=== PATIENT | female | born 1980 | race Caucasian/White ===

== ENCOUNTER 2016-11-02 02:25 | Inpatient (IN) | payer MEDICAID ==
[2016-11-02] MEDS ORDERED: ONDANSETRON 4 MG/2 ML VIAL IVP PRN ×2 (02:45→04:54)
[2016-11-02] MEDS ORDERED: SODIUM CHLORIDE FLUSH 0.9% 10 ML SYRINGE IVP ONE (02:57)
[2016-11-02] MEDS ORDERED: fentaNYL 100 MCG/2 ML VIAL IVP PRN (02:58)
[2016-11-02] MEDS ORDERED: fentaNYL 100 MCG/2 ML VIAL ONE (04:02)
[2016-11-02] MEDS ORDERED: SUFENTA/BUPIV 0.4 MCG/0.0625% 150 ML EP ONE (04:03)
[2016-11-02] MEDS ORDERED: ROPIVACAINE 0.2% PF 10 ML VIAL EPI ONE (04:15)
[2016-11-02] MEDS ORDERED: fentaNYL 100 MCG/2 ML VIAL IVP ONE (04:15)
[2016-11-02] MEDS: LACTATED RINGERS 1,000 ML IV SCH (04:49)
[2016-11-02] MEDS ORDERED: diphenhydrAMINE INJ 50 MG/ML VIAL IVP PRN (04:54)
[2016-11-02] MEDS ORDERED: SUFENTA/BUPIV 0.4 MCG/0.0625% EPIDURAL 150 ML EP PRN (04:54)
[2016-11-02] MEDS ORDERED: NALBUPHINE 20 MG/ML AMP IVP PRN (04:54)
[2016-11-02] MEDS ORDERED: LACTATED RINGERS 500 ML IV SCH (04:54)
[2016-11-02] MEDS ORDERED: ePHEDrine 50 MG/ML AMP IVP PRN (04:54)
[2016-11-02] MEDS ORDERED: METOCLOPRAMIDE 10 MG/2 ML VIAL IVP PRN (04:54)
[2016-11-02] MEDS ORDERED: NALOXONE 0.4 MG/ML VIAL IVP PRN (04:54)
[2016-11-02] MEDS ORDERED: OXYTOCIN/LACTATED RINGERS 250 ML IV ONE ×2 (07:15→09:07)
[2016-11-02] MEDS ORDERED: ONDANSETRON ODT 4 MG TABLET PO PRN (09:07)
[2016-11-02] MEDS ORDERED: diphenhydrAMINE 25 MG CAPSULE PO PRN (09:07)
[2016-11-02] MEDS ORDERED: HYDROCORTISONE/PRAMOXINE 10 GM PR PRN (09:07)
[2016-11-02] MEDS ORDERED: HYDROcod/ACETAM 5/325 MG TABLET PO PRN (09:07)
[2016-11-02] MEDS ORDERED: MAGNESIUM HYDROXIDE 2,400 MG/30 ML UDC PO PRN (09:07)
[2016-11-02] MEDS: IBUPROFEN 600 MG TABLET PO SCH ×3 (11:07→22:56)
[2016-11-02] MEDS: DOCUSATE SODIUM 100 MG CAPSULE PO SCH (22:56)
[2016-11-03] MEDS: IBUPROFEN 600 MG TABLET PO SCH ×4 (04:56→23:07)
[2016-11-03] MEDS: LACTATED RINGERS 1,000 ML IV SCH ×2 (07:25→11:25)
[2016-11-03] MEDS: DOCUSATE SODIUM 100 MG CAPSULE PO SCH ×2 (08:35→23:06)
[2016-11-03] MEDS: ACETAMINOPHEN 500 MG TABLET PO PRN ×2 (09:35→16:58)
[2016-11-04] MEDS: ACETAMINOPHEN 500 MG TABLET PO PRN ×2 (02:19→09:45)
[2016-11-04] MEDS: IBUPROFEN 600 MG TABLET PO SCH (09:46)
[2016-11-04] MEDS: DOCUSATE SODIUM 100 MG CAPSULE PO SCH (09:49)
== END 2016-11-04 11:00 | disposition home or self-care (01) | DRG 775 ==
PROC: 10E0XZZ Delivery of Products of Conception, External Approach (ICD-10-PCS; principal; 2016-11-02)
DX: O80 Encounter for full-term uncomplicated delivery (principal); Z3A.40 40 weeks gestation of pregnancy; Z37.0 Single live birth

== ENCOUNTER 2018-01-05 16:55 | Emergency (ER) | payer MEDICAID ==
--- NOTE | 2018-01-05 18:53 | ED Physician Documentation ---
PD HPI URI - Stated complaint Stated Complaint: SINUS PRESSURE - Chief complaint Chief Complaint: Heent - History obtained from History obtained from: Patient - History of Present Illness Timing - onset: How many days ago Timing duration: Days Timing details: Gradual onset, Still present (had had congestion and sore throat couple of weeks and now with few days of purulent, bad smelling drainage , purulent, with some fever and sinus pain.) Associated symptoms: Fever, Nasal congestion, Sinus pain, Sore throat, Dry cough. 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 HEENT: None Psych: None Musculoskeletal: None Derm: None - Past Surgical History Past Surgical History: No - Present Medications Home Medications: Ambulatory Orders Medication Instructions Recorded Confirmed Azithromycin [Zithromax] 250 mg PO DAILY #6 tablet 01/05/18 Benzonatate [Tessalon] 100 mg PO TID PRN #25 capsule 01/05/18 Dexamethasone [Decadron] 4 mg PO DAILY #5 tablet 01/05/18 guaiFENesin/CODEINE [Robitussin AC] 10 ml PO Q6H PRN #240 ml 01/05/18 - Allergies Allergies/Adverse Reactions: Allergies Allergy/AdvReac Type Severity Reaction Status Date / Time Sulfa (Sulfonamide Allergy Unknown Verified 01/05/18 17:10 Antibiotics) - Social History Does the pt smoke?: No Smoking Status: Never smoker Does the pt drink ETOH?: No Does the pt have substance abuse?: No - Immunizations Immunizations are current?: Yes - POLST Patient has POLST: No POLST Status: Full Code PD ED PE NORMAL - Vitals Vital signs reviewed: Yes - General General: Alert and oriented X 3, No acute distress, Well developed/nourished - HEENT HEENT: Ears normal, Pharynx benign, Other (sinus tenderness to percussion frontal area. ) - Neck Neck: Supple, no meningeal sign, No adenopathy - Cardiac Cardiac: RRR, No murmur - Respiratory Respiratory: Clear bilaterally - Abdomen Abdomen: Soft, Non tender - Derm Derm: No rash Results - Vitals Vitals: Oxygen O2 Source Room air PD MEDICAL DECISION MAKING - ED course Complexity details: considered differential (has what sounds like bacterial sinusitis atop recent URI. ), d/w patient Departure - Departure Disposition: 01 Home, Self Care Clinical Impression: Acute sinusitis Qualifiers: Sinusitis location: pansinusitis Recurrence: non-recurrent Qualified Code(s): J01.40 - Acute pansinusitis, unspecified Condition: Stable Record reviewed to determine appropriate education?: Yes Instructions: ED Sinusitis Abx Tx Prescriptions: Azithromycin [Zithromax] 250 mg PO DAILY #6 tablet Benzonatate [Tessalon] 100 mg PO TID PRN #25 capsule PRN Reason: Cough Dexamethasone [Decadron] 4 mg PO DAILY #5 tablet guaiFENesin/CODEINE [Robitussin AC] 10 ml PO Q6H PRN #240 ml PRN Reason: Cough Comments: This sounds like a development of a bacterial sinus infection on top of the head cold that you have had. We will treated with Zithromax antibiotic for 5 days and Decadron steroid for 5 days. For the cough that you still have, use Tessalon and/or cough medicine if needed. Recheck if not improving over the next several days. Tylenol or ibuprofen if needed for fevers and pains. Discharge Date/Time: 01/05/18 19:40
[2018-01-05 19:37] VITALS: BP 112/82
== END 2018-01-05 19:40 | disposition home or self-care (01) ==
LOC: ED 16:55
DX: J01.40 Acute pansinusitis, unspecified (principal)
CPT/HCPCS: 99283

== ENCOUNTER 2018-05-21 21:42 | Emergency (ER) | payer MEDICAID ==
--- NOTE | 2018-05-21 23:57 | ED Physician Documentation ---
History of Present Illness - Stated complaint Stated Complaint: NUMBNESS/TINGLING ON LF SIDE OF FACE - Chief complaint Chief Complaint: General - History obtained from History obtained from: Patient - History of Present Illness Timing: Other (1-2 days) Improved by: nothing Worsened by: no exacerbating factors - Additonal information Additional information: c/o 1-2 days of left facial pain radiating to left jaw, left teeth, left ear, and left side of tongue (particularly at the tip). she says it is not so much pain as the discomfort of pins and needles paresthesias, likening the sensation to a dental block starting to wear off. denies weakness, denies LITTLE, visual changes, AMS, problems with coordination Review of Systems Constitutional: reports: Reviewed and negative Eyes: reports: Reviewed and negative Ears: reports: Ear pain. denies: Loss of hearing Nose: reports: Reviewed and negative Throat: reports: Reviewed and negative Neurologic: reports: Reviewed and negative. 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 HEENT: None Psych: None Musculoskeletal: None Derm: None - Past Surgical History Past Surgical History: No - Present Medications Home Medications: Ambulatory Orders Medication Instructions Recorded Confirmed No Known Home Medications [No 05/21/18 05/21/18 Known Home Medications] - Allergies Allergies/Adverse Reactions: Allergies Allergy/AdvReac Type Severity Reaction Status Date / Time Sulfa (Sulfonamide Allergy Unknown Verified 05/21/18 21:48 Antibiotics) - Social History Does the pt smoke?: No Smoking Status: Never smoker Does the pt drink ETOH?: No Does the pt have substance abuse?: No - Immunizations Immunizations are current?: Yes - POLST Patient has POLST: No POLST Status: Full Code PD ED PE NORMAL - Vitals Vital signs reviewed: Yes - General General: Alert and oriented X 3, No acute distress, Well developed/nourished - HEENT HEENT: Atraumatic, PERRL, EOMI, Ears normal, Moist mucous membranes, Pharynx benign, Dentition benign - Neck Neck: Supple, no meningeal sign - Derm Derm: Normal color, Warm and dry, No rash - Neuro Neuro: Alert and oriented X 3, 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 differential includes, but not necessarily limited to, lala s palsy (prodrome occasionally precedes weakness, and ear pain could be how she is describing the hyperacusis sometimes accompanying early bells, and tongue involvement also would be c/w bells); herpes zoster (prodrome to exanthem , as she delineates CN V3 distribution). these diagnoses would become obvious should weakness or rash, respectively, manifest within next 1-2 days, and this was d/w patient. no focal neurologic findings to suggest CVA, mass lesion, and denies previous neurologic problems (specifically, bladder control and/or visual changes and /or severe LITTLE) to suggest MS. will need reevaluation if symptoms persist or worsen. - Sepsis Event Vital Signs: Oxygen O2 Source Room air Departure - Departure Disposition: 01 Home, Self Care Clinical Impression: Facial paresthesia Condition: Good Instructions: ED Paraesthesias Follow-Up: [facility] [Provider Group] Discharge Date/Time: 05/22/18 00:27
[2018-05-22 00:24] VITALS: BP 117/74
== END 2018-05-22 00:27 | disposition home or self-care (01) ==
LOC: ED 21:42
DX: R20.2 Paresthesia of skin (principal)
CPT/HCPCS: 99282; 99283

== ENCOUNTER 2020-12-20 08:22 | Outpatient (CLI) | payer MEDICAID ==
--- NOTE | 2020-12-25 12:15 | Ultrasound Report ---
LIMITED ULTRASOUND OF RIGHT BREAST: 12/20/2020 CLINICAL: Palpable right breast lump. Comparison is made to exam dated: 12/20/2020 mammogram - [facility]. Color flow ultrasound of the right breast 10 o'clock region was performed. Jorge scale images of the real-time examination were reviewed. There is a dilated duct in the right breast at 10 o'clock middle depth. This dilated duct displays i nternal echoes. This correlates as palpated. IMPRESSION: PROBABLY BENIGN The dilated duct in the right breast is probably benign. A follow-up right ultrasound in 6 months is recommended to demonstrate stability. This exam was interpreted at Station ID: [id number]. Electronically Signed By: Hammad so:12/20/2020 16:01:11 Ultrasound BI-RADS: 3 Probably benign BI-RADS CATEGORY: (3) - 3 Ultrasound [id number] 6 month follow-up LATERALITY: (R)
--- NOTE | 2020-12-25 12:15 | Mammography Report ---
BILATERAL DIGITAL DIAGNOSTIC MAMMOGRAM 3D/2D: 12/20/2020 CLINICAL: Baseline exam. Palpable right breast lump. No prior exams were available for comparison. The tissue of both breasts is extremely dense, which l owers the sensitivity of mammography. No significant masses, calcifications, or other findings are seen in either breast. IMPRESSION: INCOMPLETE: NEEDS ADDITIONAL IMAGING EVALUATION There is no abnormality seen in the right breast to correspond with the palpable abnormality, however , ultrasound is recommended. Targeted ultrasound is recommended for further evaluation, which will b e scheduled immediately following this exam. This exam was interpreted at Station ID: [id number]. NOTE: For mammograms, a report in lay terms will be sent to the patient. Approximately 15% of breast malignancies will not be visualized mammographically. In the management of a palpable breast mass, a negative mammogram must not discourage biopsy of a clinically suspicious lesion. Electronically Signed By: Hammad lemons/augustin:12/25/2020 10:15:35 ACR BI-RADS Category 0: Incomplete 3340F PARENCHYMAL PATTERN: (VD) - The breast(s) demonstrate(s) extremely dense parenchyma, limiting the sen sitivity of mammography. BI-RADS CATEGORY: (0) - 0 Ultrasound [id number] Immediate follow-up LATERALITY: (R)
== END 2020-12-20 08:23 | disposition home or self-care (01) ==
LOC: DI 08:22
PROVIDERS: ATTEND Obstetrics & Gynecology
DX: N63.10 Unspecified lump in the right breast, unspecified quadrant (principal)

== ENCOUNTER 2021-09-25 17:06 | Emergency (ER) | payer MEDICAID ==
--- NOTE | 2021-09-25 19:12 | XRAY Report ---
PROCEDURE: Chest 2 View X-Ray INDICATIONS: cough TECHNIQUE: 2 view(s) of the chest. COMPARISON: None. FINDINGS: SUPPORT DEVICES: None. LUNGS/PLEURA: No focal consolidation, pleural effusion or space-occupying pneumothorax. MEDIASTINUM: The cardiomediastinal silhouette is within normal limits. BONES/SOFT TISSUES: No acute abnormality. IMPRESSION: 1.No acute cardiopulmonary abnormality. Reviewed by: Berhane Felton MD on 09/25/2021 7:10 PM [facility] Approved by: Berhane Felton MD on 09/25/2021 7:10 PM [facility] Station ID: [id number]
[2021-09-25] MEDS ORDERED: KETOROLAC 30 MG/ML VIAL IM STA (19:14)
--- NOTE | 2021-09-25 19:15 | ED Physician Documentation ---
History of Present Illness - Stated complaint Stated Complaint: CP - Chief complaint Chief Complaint: Cardiac - Additonal information Additional information: 41-year-old female presents the emergency department for evaluation of acute substernal chest pain. She reports it feels like there is a burning in her chest. Especially worse when leaning forward. Hurts to take a deep breath. No cough no fevers. Patient is fully vaccinated for COVID-19. No recent travel. No hormone use. No unilateral leg swelling. No personal history of DVT or cancer. Patient is a non-smoker. No alcohol use. No history of HTN or DM Review of Systems Constitutional: denies: Fever, Chills Eyes: reports: Reviewed and negative Ears: reports: Reviewed and negative Nose: reports: Reviewed and negative Throat: reports: Reviewed and negative Cardiac: reports: Chest pain / pressure. 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 HEENT: None Psych: None Musculoskeletal: None Derm: None - Past Surgical History Past Surgical History: No - Present Medications Home Medications: Ambulatory Orders Medication Instructions Recorded Confirmed No Known Home Medications 05/21/18 09/25/21 - Allergies Allergies/Adverse Reactions: Allergies Allergy/AdvReac Type Severity Reaction Status Date / Time Sulfa (Sulfonamide Allergy Unknown Verified 09/25/21 17:08 Antibiotics) - Social History Does the pt smoke?: No Smoking Status: Never smoker Does the pt drink ETOH?: No Does the pt have substance abuse?: No - Immunizations Immunizations are current?: Yes - POLST Patient has POLST: No POLST Status: Full Code PD ED PE NORMAL - General General: Alert and oriented X 3, No acute distress - HEENT HEENT: PERRL - Neck Neck: Supple, no meningeal sign - Cardiac Cardiac: RRR, No murmur - Respiratory Respiratory: Clear bilaterally - Abdomen Abdomen: Normal bowel sounds, Soft, Non tender, Non distended - Back Back: No CVA TTP, No spinal TTP - Derm Derm: Warm and dry - Extremities Extremities: No deformity - Neuro Neuro: Alert and oriented X 3 Eye Opening: Spontaneous Motor: Obeys Commands Verbal: Oriented GCS Score: 15 Results - Vitals Vitals: Vital Signs - 24 hr 09/25/21 09/25/21 17:10 19:02 Temperature 36.3 C L Heart Rate 86 71 Respiratory 16 16 Rate Blood Pressure 149/93 H 111/92 H O2 Saturation 98 97 Oxygen O2 Source Room air - EKG (time done) 1715 Rate: Rate (enter#) (85) Rhythm: NSR [place]: Normal Intervals: Normal [place]. No: Prolonged QT QRS: LVH Ischemia: Non specific changes Compare to prior EKG: Old EKG unavailable Computer interpretation: Agree with computer - Labs Labs: Laboratory Tests 09/25/21 09/25/21 09/25/21 19:33 19:33 19:33 WBC 7.2 RBC 4.60 Hgb 14.6 Hct 43.6 MCV 94.8 MCH 31.7 H MCHC 33.5 RDW 12.4 Plt Count 258 MPV 9.9 Neut # (Auto) 4.1 Lymph # (Auto) 2.6 [place] # (Auto) 0.3 Eos # (Auto) 0.1 Baso # (Auto) 0.1 Absolute Nucleated RBC 0.00 Nucleated RBC % 0.0 D-Dimer Sodium 137 Potassium 3.7 Chloride 101 Carbon Dioxide 24 Anion Gap 12.0 BUN 12 Creatinine 0.6 Estimated GFR (MDRD) 111 Glucose 98 Calcium 9.1 Total Bilirubin 1.2 H AST 19 ALT 16 Alkaline Phosphatase 64 Troponin I High Sens < 2.3 L Total Protein 7.6 Albumin 4.6 Globulin 3.0 Albumin/Globulin Ratio 1.5 Lipase 28 09/25/21 19:33 WBC RBC Hgb Hct MCV MCH MCHC RDW Plt Count MPV Neut # (Auto) Lymph # (Auto) [place] # (Auto) Eos # (Auto) Baso # (Auto) Absolute Nucleated RBC Nucleated RBC % D-Dimer 215.5 Sodium Potassium Chloride Carbon Dioxide Anion Gap BUN Creatinine Estimated GFR (MDRD) Glucose Calcium Total Bilirubin AST ALT Alkaline Phosphatase Troponin I High Sens Total Protein Albumin Globulin Albumin/Globulin Ratio Lipase - Rads (name of study) CXR Radiology: Final report received (no acute cardiopulmonary pathology) PD MEDICAL DECISION MAKING - ED course Complexity details: reviewed results, re-evaluated patient, considered differential, d/w patient ED course: This is a well-appearing 41-year-old female that presents the emergency department for evaluation of 24 hours acute pleuritic chest pain. Hurts with positioning as well as deep breath. She is PERC criteria and Wells criteria negative. Very few risk factors for coronary artery disease she is not a smoker does not carry history of hypertension or diabetes. Screening EKG was nonischemic. 2 view chest x-ray does not reveal findings of pneumonia or consolidation. Screening labs including a D-dimer as well as a troponin were negative. Her EKG is not consistent with a pericarditis. The etiology of her symptoms is not clear though I do suspect that she has a mild pleurisy. She is fully vaccinated for COVID-19. Patient was given some Toradol here in the emergency department with mild to moderate relief of her symptoms. Patient is discharged home in stable condition expectant management of suspected pleurisy was discussed. Emergent worrisome return precautions were discussed Departure - Departure Disposition: Home, Self Care Clinical Impression: Chest pain Qualifiers: Chest pain type: chest pain on breathing Qualified Code(s): R07.1 - Chest pain on breathing; R07.81 - Pleurodynia Condition: Stable Record reviewed to determine appropriate education?: Yes Instructions: ED Chest Pain Pleurisy Comments: Alisa you are seen in the ER today for chest pain that is worse when you take a deep breaths. As we discussed at the bedside your screening labs are all essentially normal. Your chest x-ray is normal and your EKG does not show signs of a heart attack. Your EKG does not show signs of pericarditis or inflammation of the lining of the heart. Your labs do not indicate that you are having a heart attack. Your d-dimer is not elevated. There is very low suspicion for a pulmonary embolus. I am as we discussed at the bedside I suspect that you have a mild pleurisy which is inflammation of the lining of the lung. There is no specific treatment for this and in general it gets better with NSAID medications such as ibuprofen or naproxen taken 2-3 times a day. If you find that your symptoms or not improving after 7 to 10 days, you begin to develop any fevers have a cough or severe shortness of air then please return i mmediately to the ER for second evaluation
[2021-09-25 19:49] LABS: BASOPHILS # (AUTO) 0.1 10^3/uL (0.0-0.1); BASOPHILS % (AUTO) 0.7 %; EOSINOPHILS # (AUTO) 0.1 10^3/uL (0.0-0.7); EOSINOPHILS % (AUTO) 1.8 %; HCT - HEMATOCRIT 43.6 % (37.0-47.0); HGB - HEMOGLOBIN 14.6 g/dL (12.0-16.0); LYMPHOCYTES # (AUTO) 2.6 10^3/uL (1.5-3.5); LYMPHOCYTES % (AUTO) 35.6 %; MEAN CORPUSCULAR HEMOGLOBIN 31.7 pg (27.0-31.0); MEAN CORPUSCULAR HGB CONC 33.5 g/dL (32.0-36.0); MEAN CORPUSCULAR VOLUME 94.8 fL (81.0-99.0); MEAN PLATELET VOLUME 9.9 fL (7.9-10.8); MONOCYTES # (AUTO) 0.3 10^3/uL (0.0-1.0); MONOCYTES % (AUTO) 4.7 %; NEUTROPHILS # (AUTO) 4.1 10^3/uL (1.5-6.6); NEUTROPHILS % (AUTO) 56.9 %; PLT - PLATELET COUNT 258 10^3/uL (130-450); RED CELL DISTRIBUTION WIDTH 12.4 % (12.0-15.0); WHITE BLOOD COUNT 7.2 x10^3/uL (4.8-10.8)
[2021-09-25 19:57] LABS: ALBUMIN 4.6 g/dL (3.2-5.5); ALBUMIN/GLOBULIN RATIO 1.5 (1.0-2.2); BILIRUBIN,TOTAL 1.2 mg/dL (0.2-1.0); CALCIUM 9.1 mg/dL (8.5-10.3); CREATININE 0.6 mg/dL (0.4-1.0); POTASSIUM 3.7 mmol/L (3.5-5.0); TOTAL PROTEIN 7.6 g/dL (6.7-8.2)
[2021-09-25 20:53] VITALS: BP 112/88
== END 2021-09-25 20:52 | disposition home or self-care (01) ==
LOC: ED 17:06
DX: R07.1 Chest pain on breathing (principal); R07.81 Pleurodynia
CPT/HCPCS: 36415; 80053; 83690; 84484; 85025; 85379; 93005; 96372; 99283; 99284

== ENCOUNTER 2022-09-23 11:14 | Emergency (ER) | payer MEDICAID ==
[2022-09-23 11:21] VITALS: BP 136/85
--- NOTE | 2022-09-23 11:38 | ED Physician Documentation ---
PD HPI HEENT - Stated complaint Stated Complaint: LT EAR PX - Chief complaint Chief Complaint: Heent - History obtained from History obtained from: Patient - History of Present Illness Timing - onset: How many days ago (has had some congestion and cough for few weeks, but having frontal and periorbital pressure and pain along with ear pain the past 3 days.) Timing - duration: Days Timing - details: Gradual onset, Still present Location: Right ear, Left ear, Sinuses Improves: No: Medication (cough meds and ibuprofen) Worsens: No: Swalllowing, Position Associated symptoms: Congestion, Cough (with wheezing and flaring of her occasional asthma.). No: Fever Recently seen: Not recently seen Review of Systems Constitutional: reports: Myalgias. denies: Fever, Chills Nose: reports: Rhinorrhea / runny nose, Sinus pressure / pain Throat: denies: Sore throat Respiratory: reports: Dyspnea (increased the past week), Cough, Wheezing GI: denies: Nausea, Vomiting, Diarrhea Skin: denies: Rash Neurologic: reports: Headache (frontal and periorbital). denies: Altered mental status PD PAST MEDICAL HISTORY - Past Medical History Past Medical History: Yes Cardiovascular: None Respiratory: Asthma (occasional with MDI use when sick in the past. 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 HEENT: None Psych: None Musculoskeletal: None Derm: None - Past Surgical History Past Surgical History: No - Present Medications Home Medications: Ambulatory Orders Medication Instructions Recorded Confirmed Albuterol Sulf [Ventolin Hfa 1 - 2 puffs INH Q4HR PRN #1 each 09/23/22 Inhaler] Amoxicillin 500 mg PO TID #21 cap 09/23/22 Benzonatate [Tessalon] 100 mg PO TID PRN #20 cap 09/23/22 dexAMETHasone [Decadron] 4 mg PO DAILY #5 tablet 09/23/22 - Allergies Allergies/Adverse Reactions: Allergies Allergy/AdvReac Type Severity Reaction Status Date / Time Sulfa (Sulfonamide Allergy Unknown Verified 09/23/22 11:21 Antibiotics) - Social History Does the pt smoke?: No Smoking Status: Never smoker Does the pt drink ETOH?: No Does the pt have substance abuse?: No - Immunizations Immunizations are current?: Yes - POLST Patient has POLST: No POLST Status: Full Code PD ED PE NORMAL - Vitals Vital signs reviewed: Yes - General General: Alert and oriented X 3, No acute distress, Well developed/nourished - HEENT HEENT: Ears normal (fluid behind TMs without redness nor purulence. ), Moist mucous membranes, Pharynx benign - Neck Neck: Supple, no meningeal sign, No adenopathy - Cardiac Cardiac: RRR, No murmur - Respiratory Respiratory: No: Clear bilaterally (no coarse sounds but some exp wheezes scattered. ) - Derm Derm: Normal color, Warm and dry - Neuro Neuro: Alert and oriented X 3, No motor deficit, Normal speech Results - Vitals Vitals: Vital Signs - 24 hr 09/23/22 11:18 Temperature 36.6 C Heart Rate 89 Respiratory 16 Rate Blood Pressure 136/85 H O2 Saturation 98 Oxygen O2 Source Room air PD MEDICAL DECISION MAKING - ED course Complexity details: considered differential, d/w patient Departure - Departure Disposition: 01 Home, Self Care Clinical Impression: Upper respiratory infection, Wheezing Acute sinusitis Qualifiers: Sinusitis location: unspecified location Recurrence: non-recurrent Qualified Code(s): J01.90 - Acute sinusitis, unspecified Condition: Stable Record reviewed to determine appropriate education?: Yes Instructions: ED Sinusitis Abx Tx Follow-Up: Eve De La Rosa ARNP [Primary Care Provider] - Prescriptions: Albuterol Sulf [Ventolin Hfa Inhaler] 1 - 2 puffs INH Q4HR PRN #1 each PRN Reason: Shortness Of Air/Wheezing Amoxicillin 500 mg PO TID #21 cap dexAMETHasone [Decadron] 4 mg PO DAILY #5 tablet Benzonatate [Tessalon] 100 mg PO TID PRN #20 cap PRN Reason: Cough Comments: This does sound like a sinus infection likely bacterial. We can treat with amoxicillin antibiotic as directed for a week. We can also prescribe medication to help with your breathing and cough. I would try the albuterol inhaler 2 puffs 4 times a day regularly for the next several days to week to help with the coughing and breathing. Benzonatate to help with cough suppression. Stay well-hydrated. Continue with Tylenol every 4-6 hours if needed for fevers or pains. You can also add dexamethasone steroid anti-inflammatory for the next several days to help with inflammation of the upper airway and sinuses. I would anticipate improving over the next several days to a week. I transmitted prescriptions to [facility] pharmacy in [place]. Discharge Date/Time: 09/23/22 12:04
[2022-09-23] MEDS ORDERED: DEXAMETHASONE 10 MG/ML VIAL PO STA (11:54)
[2022-09-23] MEDS ORDERED: AMOXICILLIN 250 MG CAPSULE PO STA (11:54)
[2022-09-23] MEDS ORDERED: BENZONATATE 100 MG CAPSULE PO STA (11:54)
[2022-09-23] MEDS ORDERED: CHERRY SYRUP 10 ML UDC PO ONE (11:54)
== END 2022-09-23 12:04 | disposition home or self-care (01) ==
LOC: ED 11:14
DX: J06.9 Acute upper respiratory infection, unspecified (principal); J01.90 Acute sinusitis, unspecified
CPT/HCPCS: 99282; 99284; A9270

== ENCOUNTER 2024-02-17 09:20 | Outpatient (CLI) | payer MEDICAID ==
--- NOTE | 2024-02-18 09:30 | Mammography Report ---
BILATERAL DIGITAL SCREENING MAMMOGRAM 3D/2D: 02/17/2024 CLINICAL: Routine screening. Comparison is made to exams dated: 05/16/2022 mammogram, 12/20/2020 mammogram, and 12/20/2020 mammogram - [facility]. Both breasts are extremely dense, which lowers the sensitivity of mammography (category d />75% gland ular tissue). No significant masses, calcifications, or other findings are seen in either breast. There has been no significant interval change. IMPRESSION: NEGATIVE There is no mammographic evidence of malignancy. A 1 year screening mammogram is recommended. Based on Tyrer-Cuzick model (a risk assessment model), the patient's lifetime risk is 22.1% and her 1 0 year risk is 3.6%. If a patient has an elevated risk, a more comprehensive evaluation should be con sidered and/or a referral to a genetic counselor. The [place] [employer], [place] [employer], and NCCN Guidelines advise the consideration of Breast MRI as an adjunct to screening mammog [place] in patients whose "Lifetime risk to develop breast cancer" is 20% or higher. This exam was interpreted at Station ID: [id number]. NOTE: For mammograms, a report in lay terms will be sent to the patient. Approximately 15% of breast malignancies will not be visualized mammographically. In the management of a palpable breast mass, a negative mammogram must not discourage biopsy of a clinically suspicious lesion. Electronically Signed By: Ryne castellanos/augustin:02/17/2024 15:44:28 letter sent: No_Letter ACR BI-RADS Category 1: Negative 3341F PARENCHYMAL PATTERN: (VD) - The breast(s) demonstrate(s) extremely dense parenchyma, limiting the sen sitivity of mammography. BI-RADS CATEGORY: (1) - 1 RECOMMENDATION: (ANNUAL) - Recommend routine annual screening mammography. [id number] 1 year screening LATERALITY: (B)
== END 2024-02-17 09:21 | disposition home or self-care (01) ==
LOC: DI.N 09:20
DX: Z12.31 Encounter for screening mammogram for malignant neoplasm of breast (principal); R92.30 Dense breasts, unspecified

== ENCOUNTER 2024-02-17 09:51 | Outpatient (CLI) | payer MEDICAID ==
[2024-02-17 11:49] LABS: BASOPHILS % (AUTO) 0.5 %; EOSINOPHILS # (AUTO) 0.1 10^3/uL (0.0-0.7); EOSINOPHILS % (AUTO) 1.6 %; HCT - HEMATOCRIT 43.4 % (37.0-47.0); HGB - HEMOGLOBIN 14.2 g/dL (12.0-16.0); LYMPHOCYTES # (AUTO) 1.9 10^3/uL (1.5-3.5); LYMPHOCYTES % (AUTO) 31.2 %; MEAN CORPUSCULAR HEMOGLOBIN 30.5 pg (27.0-31.0); MEAN CORPUSCULAR HGB CONC 32.7 g/dL (32.0-36.0); MEAN CORPUSCULAR VOLUME 93.1 fL (81.0-99.0); MEAN PLATELET VOLUME 10.5 fL (7.9-10.8); MONOCYTES # (AUTO) 0.3 10^3/uL (0.0-1.0); MONOCYTES % (AUTO) 5.6 %; NEUTROPHILS # (AUTO) 3.7 10^3/uL (1.5-6.6); NEUTROPHILS % (AUTO) 60.9 %; PLT - PLATELET COUNT 281 10^3/uL (130-450); RED BLOOD COUNT 4.66 10^6/uL (4.20-5.40); RED CELL DISTRIBUTION WIDTH 12.5 % (12.0-15.0); WHITE BLOOD COUNT 6.1 x10^3/uL (4.8-10.8)
[2024-02-17 12:14] LABS: ALBUMIN 4.5 g/dL (3.2-5.5); ALBUMIN/GLOBULIN RATIO 1.7 (1.0-2.2); ALKALINE PHOSPHATASE 72 IU/L (42-121); ALT ALANINE AMINOTRANSFERASE 14 IU/L (10-60); AST ASPARTATE AMINOTRANSFERASE 17 IU/L (10-42); BILIRUBIN,TOTAL 1.5 mg/dL (0.2-1.0); BUN - BLOOD UREA NITROGEN 12 mg/dL (6-20); CALCIUM 9.8 mg/dL (8.5-10.3); CARBON DIOXIDE - CO2 26 mmol/L (21-32); CHLORIDE 106 mmol/L (101-111); CHOL/HDL RATIO 4.5 (<4.4); CHOLESTEROL 214 mg/dL; CREATININE 0.6 mg/dL (0.6-1.3); GFR - MDRD 110 (>89); GLUCOSE 102 mg/dL (74-104); HDL CHOLESTEROL 48 mg/dL; LDL CHOLESTEROL,CALCULATED 146 mg/dL; POTASSIUM 3.9 mmol/L (3.5-4.5); SODIUM 138 mmol/L (135-145); TOTAL PROTEIN 7.1 g/dL (6.4-8.9); TRIGLYCERIDES 100 mg/dL (48-352); VLDL CHOLESTEROL 20 mg/dL
[2024-02-17 12:27] LABS: THYROID STIMULATING HORMONE 1.94 uIU/mL (0.34-5.60)
== END 2024-02-17 09:52 | disposition home or self-care (01) ==
LOC: LAB.N 09:51
PROVIDERS: ATTEND Physician Assistant
DX: Z13.9 Encounter for screening, unspecified (principal)
CPT/HCPCS: 36415; 80050; 80061; 83721

== ENCOUNTER 2024-02-24 10:56 | Outpatient (CLI) | payer MEDICAID ==
--- NOTE | 2024-02-24 11:41 | Ultrasound Report ---
PROCEDURE: Extremity Soft Tissue Limited INDICATIONS: SOFT TISSUE MASS TECHNIQUE: Real-time scanning was performed of the proximal left thigh, with image documentation. COMPARISON: None. FINDINGS: Focused ultrasound examination of anterior proximal left thigh at patient's reported area of palpable lump shows a well-circumscribed 1.3 x 0.7 x 1.2 cm solid appearing nodule within subcutan eous soft tissue and is isoechoic to adjacent subcutaneous fat. No internal vascularity is seen. IMPRESSION: Finding most likely represent small lipoma in anterior right thigh subcutaneous soft tis josé. Clinical correlation and follow-up is recommended. Reviewed by: Tim Anderson MD on 02/24/2024 11:40 AM PDT Approved by: Tim Anderson MD on 02/24/2024 11:40 AM PDT Station ID: [id number]
== END 2024-02-24 10:57 | disposition home or self-care (01) ==
LOC: DI 10:56
PROVIDERS: ATTEND Physician Assistant
DX: R22.42 Localized swelling, mass and lump, left lower limb (principal)